=== PATIENT | female | born 1950 | race Caucasian/White ===

== ENCOUNTER 2017-04-18 14:49 | Emergency (ER) | payer OTHER ==
--- NOTE | 2017-04-18 15:13 | PDOC ---
History of Present Illness <Dallas Harley - Last Filed: 04/18/17 15:08> - General History Source: Patient Exam Limitations: No Limitations - History of Present Illness Initial Comments: 04/18/17 15:27 The patient is a 66 year old female, with a significant past medical history of Glaucoma, who presents to the emergency department s/p hand burn earlier this afternoon. The patient reports she was pouring hot water for a cup of tea, when she accidently spilled it over her right hand. Patient reports associated pain, erythema, and swelling across dorsal aspect of her right hand and in her right wrist. Patient reports developing a blister on the dorsum of her right hand. She denies any fever or chills. She denies any numbness or tingling. She denies any other trauma/ injuries. Allergies: NKDA Past Surgical History: None reported. Social History: Non smoker. No ETOH or recreational drug use. <Terry Aragon - Last Filed: 04/18/17 15:28> - General Chief Complaint: Burn Stated Complaint: RIGHT HAND BURN Time Seen by Provider: 04/18/17 14:57 Past History - Past Medical History COPD: No Other medical history: GLAUCOMA - Suicide/Smoking/Psychosocial Hx Smoking History: Never smoked Hx Alcohol Use: No Drug/Substance Use Hx: No Substance Use Type: None <Dallas Harley - Last Filed: 04/18/17 15:08> <Terry Aragon - Last Filed: 04/18/17 15:28> - Past Medical History Allergies/Adverse Reactions: Allergies Allergy/AdvReac Type Severity Reaction Status Date / Time No Known Allergies Allergy Verified 04/18/17 14:57 Home Medications: Ambulatory Orders NK [No Known Home Medication] 15 Review of Systems - Review of Systems Able to Perform ROS?: Yes Comments:: 04/18/17 15:28 CONSTITUTIONAL: No reported: Fever, Chills, Diaphoresis, Generalized Weakness, Malaise, Loss of Appetite SKIN: Present: Right hand/wrist burn, erythema and swelling. No reported: Rash, Itching, Pallor <Terry Aragon - Last Filed: 04/18/17 15:28> *Physical Exam - Vital Signs Last Vital Signs Temp Pulse Resp BP Pulse Ox 98.1 F 75 15 129/76 96 04/18/17 14:51 04/18/17 14:51 04/18/17 14:51 04/18/17 14:51 04/18/17 14:51 - Physical Exam Comments: 04/18/17 15:08 GENERAL: The patient is awake, alert, and fully oriented, Nontoxic - in no acute distress. SKIN: 2nd degree burn (1x1cm blister intact) measuring approx 3x4cm over the radial aspect of her R hand with mild erythema (1st degree burn) over medial aspect of wrist <Dallas Harley - Last Filed: 04/18/17 15:08> - Vital Signs Last Vital Signs Temp Pulse Resp BP Pulse Ox 98.1 F 75 15 129/76 96 04/18/17 14:51 04/18/17 14:51 04/18/17 14:51 04/18/17 14:51 04/18/17 14:51 <Terry Aragon - Last Filed: 04/18/17 15:28> Medical Decision Making - Medical Decision Making 04/18/17 15:10 noncircumferential burn over R wrist, 2nd degree over volar aspet with some 1st degree on radial wrist, spares palms supportive management at home aloe, avoid trauma fu with pmd in 1 week return precautiosn were dsicussed for signs of infection I discussed the physical exam findings, ancillary test results and final diagnoses with the patient. I answered all of the patient's questions. The patient was satisfied with the care received and felt comfortable with the discharge plan and treatment plan. The patient will call their primary care physician within 24 hours to arrange follow-up and will return to the Emergency Department with any new, persistent or worsening symptoms. A portion of this note was documented by scribe services under my direction. I have reviewed the details of the note, within reason, and agree with the documentation with the following case summary and management plan written by me <Dallas Harley - Last Filed: 04/18/17 15:08> *DC/Admit/Observation/Transfer - Discharge Dispostion Admit: No <Dallas Harley - Last Filed: 04/18/17 15:08> - Attestations Scribe Attestion: 04/18/17 15:28 Documentation prepared by Terry Aragon, acting as biomedical engineer for Dallas Harley MD. <Terry Aragon - Last Filed: 04/18/17 15:28> Diagnosis at time of Disposition: First degree burn of wrist Qualifiers: Encounter type: initial encounter Laterality: right Qualified Code(s): T23.171A - Burn of first degree of right wrist, initial encounter 2nd deg burn hand Qualifiers: Encounter type: initial encounter Burn of hand location: dorsum Laterality: right Qualified Code(s): T23.261A - Burn of second degree of back of right hand , initial encounter - Discharge Dispostion Disposition: HOME Condition at time of disposition: Stable - Referrals Referrals: Elaine Coy MD [Primary Care Provider] - - Patient Instructions Printed Discharge Instructions: DI for [place] Additional Instructions: Return to the emergency department immediately with ANY new, persistent or worsening symptoms. keep the blisters intact. Apply the aloe as prescribed. You MUST call and follow up with your doctor tomorrow for further evaluation of your symptoms. Results were discussed with you. Please make sure your doctor reviews the results of your emergency evaluation. Print Language: NAURUAN - Post Discharge Activity
[2017-04-18 15:20] VITALS: BP 129/76; PULSE 75; TEMP 98.1; BMI 24.9
== END 2017-04-18 15:23 | disposition home or self-care (01) ==
LOC: FER 14:49
DX: T23.171A Burn of first degree of right wrist, initial encounter (principal); T23.261A Burn of second degree of back of right hand, initial encounter; X10.0XXA Contact with hot drinks, initial encounter; Y93.89 Activity, other specified; Y92.9 Unspecified place or not applicable; H40.9 Unspecified glaucoma
CPT/HCPCS: 99281-25

== ENCOUNTER 2019-02-15 15:31 | Emergency (ER) | payer OTHER ==
--- NOTE | 2019-02-15 15:39 | PDOC ---
Rapid Medical Evaluation Time Seen by Provider: 02/15/19 15:37 Medical Evaluation: Allergies Allergy/AdvReac Type Severity Reaction Status Date / Time No Known Allergies Allergy Verified 04/18/17 14:57 02/15/19 15:37 I have performed a brief in-person evaluation of this patient. The patient presents with a chief complaint of: fell on R knee and face in street, unsure if she tripped Pertinent physical exam findings: abrasion to lips I have ordered the following: knee x-ray The patient will proceed to the ED for further evaluation. Discharge Disposition - Diagnosis Fall - Referrals - Patient Instructions - Post Discharge Activity
[2019-02-15 15:41] VITALS: BP 138/91; PULSE 83; TEMP 98.2; BMI 25.3
[2019-02-15] MEDS ORDERED: DIPHTH,PERTUSS(ACELL),TET 0.5 ML DISP.SYRIN IM ONE ×2 (16:29→16:30)
--- NOTE | 2019-02-15 16:36 | PDOC ---
History of Present Illness - General Chief Complaint: Injury Stated Complaint: FALL/INJURY Time Seen by Provider: 02/15/19 15:37 History Source: Patient Exam Limitations: No Limitations - History of Present Illness Initial Comments: 02/15/19 [address] uneven sidewalk landing on bilateral knees worse on the right, striking lip and bruising mouth and teeth. Patient denies LOC, states knees were bleeding but she is washed them and applied bacitracin ointment. Has appointment to see dentist, and states use ice and peroxide mouth rinses throughout the night which is resolved much of her swelling. Patient came for evaluation to ensure there was no further treatment required Occurred: reports: just prior to arrival Severity: reports: moderate Pain Location: reports: face, lower extremity Method of Injury: Yes: fall Loss of Consciousness: no loss of consciousness Past History - Travel Traveled outside of the country in the last 30 days: No Close contact w/someone who was outside of country & ill: No - Past Medical History Allergies/Adverse Reactions: Allergies Allergy/AdvReac Type Severity Reaction Status Date / Time No Known Allergies Allergy Verified 04/18/17 14:57 Home Medications: Ambulatory Orders NK [No Known Home Medication] 07/14/14 COPD: No Diabetes: Yes - Immunization History Immunization Up to Date: No - Psycho Social/Smoking Cessation Hx Smoking History: Never smoked Have you smoked in the past 12 months: No Information on smoking cessation initiated: No Hx Alcohol Use: No Drug/Substance Use Hx: No Substance Use Type: None Review of Systems - Review of Systems Able to Perform ROS?: Yes Is the patient limited Irish proficient: Yes Constitutional: Yes: Symptoms Reported, See HPI, Malaise. No: Fever HEENTM: Yes: Symptoms Reported, See HPI Respiratory: Yes: See HPI. No: Symptoms reported Musculoskeletal: Yes: Symptoms Reported, See HPI, Joint Pain, Joint Swelling Integumentary: Yes: Symptoms Reported, Bruising, Erythema Neurological: Yes: Symptoms reported All Other Systems: Reviewed and Negative *Physical Exam - Vital Signs Last Vital Signs Temp Pulse Resp BP Pulse Ox 98.2 F 83 83 H 138/91 98 02/15/19 15:38 02/15/19 15:38 02/15/19 15:38 02/15/19 15:38 02/15/19 15:38 - Physical Exam General Appearance: Yes: Nourished, Appropriately Dressed, Apparent Distress, Mild Distress HEENT: positive: MAI, Normal ENT Inspection, TMs Normal, Pharynx Normal, Other (With superficial abrasions to right knee both patellar and infrapatellar areas. Has no significant swelling, crepitus or step-offs. Is ambulatory without unsteadiness) Neck: positive: Supple. negative: Lymphadenopathy (R), Lymphadenopathy (L) Respiratory/Chest: positive: Lungs Clear, Normal Breath Sounds Gastrointestinal/Abdominal: positive: Soft. negative: Tender Musculoskeletal: positive: Normal Inspection Extremity: positive: Normal Capillary Refill, Normal Inspection, Normal Range of Motion Integumentary: positive: Normal Color, Other (Superficial abrasion to upper lip with some bruising, but swelling much reduced. Has no inner gingival laceration and no obvious dental loosening although patient reports upper left front) Neurologic: positive: manager operations research II-XII NML intact, Fully Oriented, Alert, Normal Mood/ Affect, Normal Response, Motor Strength / ED Progress Note - Progress Note Progress Note: 02/15/19 18:06 Multiple contusions, but no evidence of significant bony injury Discharge - Discharge Information Problems reviewed: Yes Clinical Impression/Diagnosis: Fall Qualifiers: Encounter type: initial encounter Qualified Code(s): W19.XXXA - Unspecified fall, initial encounter Condition: Stable Disposition: HOME - Admission No - Follow up/Referral Referrals: ON STAFF,NOT [Primary Care Provider] - - Patient Discharge Instructions Patient Printed Discharge Instructions: DI for Contusion Additional Instructions: Rest, ice to area on and off for 15 minutes 4-6 times a day Avoid heavy lifting or exercise until pain and swelling is resolved or until further directed Keep area highly elevated to reduce swelling Use splints/Andrew wrap as directed Followup with orthopedist in one to 2 days if not improving, if significantly improved may wait one week for followup with orthopedist May use ibuprofen every 6 hours as needed for pain Your tetanus/diphtheria/pertussis booster was updated today - Post Discharge Activity Work/Back to School Note: Back to Work
== END 2019-02-15 16:34 | disposition home or self-care (01) ==
LOC: JERFT 15:31
PROC: 3E0234Z Introduction of Serum, Toxoid and Vaccine into Muscle, Percutaneous Approach (ICD-10-PCS; principal; 2019-02-15)
DX: S80.02XA Contusion of left knee, initial encounter (principal); S80.01XA Contusion of right knee, initial encounter; S00.531A Contusion of lip, initial encounter; W18.39XA Other fall on same level, initial encounter; Y93.01 Activity, walking, marching and hiking; Y92.480 Sidewalk as the place of occurrence of the external cause; Y99.8 Other external cause status; E11.9 Type 2 diabetes mellitus without complications
CPT/HCPCS: 73562-TC-RT-FY; 90715; 99282-25

== ENCOUNTER 2019-10-17 19:16 | Emergency (ER) | payer OTHER ==
[2019-10-17 19:23] VITALS: BP 141/94; PULSE 65; TEMP 98.1; BMI 26.0
[2019-10-17] MEDS ORDERED: predniSONE 20 MG TABLET (UD) PO ONE (19:34)
[2019-10-17] MEDS ORDERED: KETOROLAC TROMETHAMINE 30 MG/1 ML VIAL IM ONE (19:34)
[2019-10-17] MEDS ORDERED: KETOROLAC TROMETHAMINE 30 MG/1 ML VIAL ONE (19:38)
[2019-10-17] MEDS ORDERED: predniSONE 20 MG TABLET (UD) ONE (19:39)
--- NOTE | 2019-10-17 20:04 | PDOC ---
Documentation entered by Eagle Lund SCRIBE, acting as scribe for Leticia Smith MD. Leticia Smith MD: This documentation has been prepared by the Ashely kendall Angel, SCRIBE, under my direction and personally reviewed by me in its entirety. I confirm that the documentation accurately reflects all work, treatment, procedures, and medical decision making performed by me. History of Present Illness - General Chief Complaint: Back Pain Stated Complaint: BACK PAIN History Source: Patient Exam Limitations: No Limitations - History of Present Illness Initial Comments: 10/17/19 19:43 Assessment and plan: This is a 69-year-old female who was lifting a heavy microwave a few days ago and after lifting the microwave she did not initially feel any pain but over the next 24 hours to 48 hours developed increasing low back pain in the sciatic area. Patient has been taking Tylenol without relief so came in for evaluation. Patient given Toradol and prednisone. Patient was made aware that the steroids well increase her sugar levels so she will need to monitor her sugars. Patient sent home with prescriptions for Flexeril a Medrol Dosepak and naproxen. Patient discharged we will follow-up with her primary care doctor. 10/17/19 19:46 The patient is a 69 year old female with a significant past medical history of diabetes who presents to the ED with lower left back pain and buttock pain for about 1 week. The patient states last week she went to [facility] with her neighbor and helped her neighbor lift a microwave into their car which was very heavy. The next day the patient noticed her back pain when she had trouble standing and sitting. The patient states she has also had trouble sleeping at night and tried tylenol and putting a patch on the area in pain with no relief. The patient denies SOB, cough or any direct trauma to her back. Past History - Medical History Allergies/Adverse Reactions: Allergies Allergy/AdvReac Type Severity Reaction Status Date / Time No Known Allergies Allergy Verified 04/18/17 14:57 Home Medications: Ambulatory Orders Cyclobenzaprine HCl [Flexeril 10 mg] 10 mg PO HS #10 tablet 10/17/19 Methylprednisolone [Medrol Dose Kj] 4 mg PO ASDIR #21 tablet 10/17/19 Naproxen [Naprosyn] 500 mg PO BID #20 tablet 10/17/19 metFORMIN HCL [Metformin HCl ER] 500 mg PO DAILY 10/17/19 COPD: No Diabetes: Yes - Immunization History Immunization Up to Date: No - Psycho-Social/Smoking History Smoking History: Never smoked Have you smoked in the past 12 months: No Review of Systems - Review of Systems Able to Perform ROS?: Yes Comments:: 10/17/19 19:47 General: No fevers or chills, no weakness, no weight loss HEENT: No change in vision. No sore throat. No ear pain CardioVascular: No chest pain or shortness of breath Respiratory:No cough, or wheezing. Gastrointestinal: no nausea, vomiting, diarrhea or constipation, No rectal bleeding Genitourinary: No dysuria, hematuria, or frequency Musculoskeletal: +Pain in the lower back/buttock Neurologic: No headache, vertigo, dizziness or loss of consciousness Psychiatric: nor depression Skin: No rashes or easy bruising normal weight change Allergic: no skin or latex allergy All other systems reviewed and normal *Physical Exam - Physical Exam 10/17/19 19:49 GENERAL: The patient is awake, alert, and fully oriented, in no acute distress. HEAD: Normal with no signs of trauma. EYES: Pupils equal, round and reactive to light, extraocular movements intact, sclera anicteric, conjunctiva clear. BACK: +Tenderness to palpation on L5 and S1. +Tenderness to palpation bilateral sciatic notch, left greater than right. EXTREMITIES: Positive straight leg test on the left leg at 90 degrees. no edema. NEUROLOGICAL: Normal speech, normal gait. PSYCH: Normal mood, normal affect. SKIN: Warm, Dry, normal turgor, no rashes or lesions noted. Discharge - Discharge Information Problems reviewed: Yes Clinical Impression/Diagnosis: Sciatica Qualifiers: Laterality: bilateral Qualified Code(s): M54.31 - Sciatica, right side; M54.32 - Sciatica, left side Condition: Stable Disposition: HOME - Admission No - Additional Discharge Information Prescriptions: Cyclobenzaprine HCl [Flexeril 10 mg] 10 mg PO HS #10 tablet Methylprednisolone [Medrol Dose Kj] 4 mg PO ASDIR #21 tablet Naproxen [Naprosyn] 500 mg PO BID #20 tablet - Follow up/Referral Referrals: Mica Bean MD [Primary Care Provider] - - Patient Discharge Instructions Additional Instructions: It is important that you monitor your blood sugar levels as you are medication well affect them. For the pain take naproxen 1 tablet twice a day with food do not take on an empty stomach At nighttime to help you sleep and relax take Flexeril 1 tablet before bed. For the inflammation also take the Medrol Dosepak as prescribed by the pack. Return to the emergency department immediately with ANY new, persistent or worsening symptoms. Continue any medications as previously prescribed by your physician. You should follow up with your primary doctor as soon as possible regarding today's emergency department visit. . Please make sure your doctor reviews the results of your emergency evaluation. Thank you for coming to the Emergency Department today for your care. It was a pleasure to see you today. Please note that your evaluation is INCOMPLETE until you follow-up with your doctor. - Post Discharge Activity
== END 2019-10-17 19:48 | disposition home or self-care (01) ==
LOC: FER 19:16
PROC: 3E023GC Introduction of Other Therapeutic Substance into Muscle, Percutaneous Approach (ICD-10-PCS; principal; 2019-10-17)
DX: M54.32 Sciatica, left side (principal)
CPT/HCPCS: 96372; 99284-25

== ENCOUNTER 2020-02-16 13:39 | Emergency (ER) | payer OTHER ==
--- OUTSIDE RECORDS SUMMARY | 2020-02-16 13:58 | XMS ---
:1950 Author Organization [facility] Support Name Relationship Address Phone RE Unavailable Unavailable Unavailable JIM JOHNSTON SON [address] [facility] [place] [address] cait Unavailable [address] [facility] [phone] [place] [address] Re-disclosure Warning The records that you are about to access may contain information from federally- assisted alcohol or drug abuse programs. If such information is present, then the following federally mandated warning applies: This information has been disclosed to you from records protected by federal confidentiality rules (42 CFR part 2). The federal rules prohibit you from making any further disclosure of this information unless further disclosure is expressly permitted by the written consent of the person to whom it pertains or as otherwise permitted by 42 CFR part 2. A general authorization for the release of medical or other information is NOT sufficient for this purpose. The Federal rules restrict any use of the information to criminally investigate or prosecute any alcohol or drug abuse patient.The records that you are about to access may contain highly sensitive health information, the redisclosure of which is protected by Article 27-F of the [facility] Public Health law. If you continue you may haveaccess to information: Regarding HIV / AIDS; Provided by facilities licensed or operated by the [facility] Office of Mental Health; or Provided by the [facility] Office for People With Developmental Disabilities. If such information is present, then the following [facility] mandated warning applies: This information has been disclosed to you from confidential records which are protected by state law. State law prohibits you from making any further disclosure of this information without the specific written consent of the person to whom it pertains, or as otherwise permitted by law. Any unauthorized further disclosure in violation of state law may result in a fine or fpc sentence or both. A general authorization for the release of medical or other information is NOT sufficient authorization for further disclosure. Insurance Providers Payer name Policy type Policy ID Covered Covered constitution party's Policy P lili / Coverage constitution party ID relationship to [employer] orm[employer] type [place] LOCAL [id number] [facility] AETNA MEBR[employer]RC SP MEBR[employer]RC MEDICARE AETNA MEBR[place]RC SP [place]RC MEDICARE AETNA MEBRTHRC SP MEBRTHRC MEDICARE AETNA MEDICARE
[2020-02-16 13:59] VITALS: BP 145/89; PULSE 70; TEMP 98.6; BMI 25.1
[2020-02-16] MEDS ORDERED: IBUPROFEN 400 MG TABLET (FP) PO ONE ×2 (14:00→14:15)
--- NOTE | 2020-02-16 14:07 | PDOC ---
History of Present Illness - General Chief Complaint: Ear Problem Stated Complaint: EAR PAIN Time Seen by Provider: 02/16/20 13:56 History Source: Patient Exam Limitations: No Limitations - History of Present Illness Initial Comments: 02/16/20 14:02 69-year-old female presents to ED with complaints of right ear pain that began while watching TV yesterday. Patient describes his blood pressure like discomfort with intermittent throbbing. Patient denies any drainage, headache or dizziness but does state mild muffled sounds. The patient denies any dental issues, throat discomfort, neck pain, fever, or injuries. Is this a multiple visit Asthma Patient?: No Timing/Duration: reports: yesterday Severity: reports: mild Possible Cause: Yes: no prior episodes Modifying Factors: improves with: other Associated Symptoms: reports: earache Past History - Travel History Traveled outside of the country in the last 30 days: No Close contact w/someone who was outside of country & ill: No - Medical History Allergies/Adverse Reactions: Allergies Allergy/AdvReac Type Severity Reaction Status Date / Time No Known Allergies Allergy Verified 02/16/20 13:57 Home Medications: Ambulatory Orders Cyclobenzaprine HCl [Flexeril 10 mg] 10 mg PO HS #10 tablet 10/17/19 Methylprednisolone [Medrol Dose Kj] 4 mg PO ASDIR #21 tablet 10/17/19 Naproxen [Naprosyn] 500 mg PO BID #20 tablet 10/17/19 metFORMIN HCL [Metformin HCl ER] 500 mg PO DAILY 10/17/19 COPD: No Diabetes: Yes - Reproductive History Is Patient Now?: No - Immunization History Immunization Up to Date: No - Psycho-Social/Smoking History Patient Lives Alone: No Lives with/in: spouse/SO Smoking History: Never smoked Have you smoked in the past 12 months: No Review of Systems - Review of Systems Able to Perform ROS?: No Is the patient limited Iraqi proficient: No Constitutional: No: Symptoms Reported HEENTM: No: Symptoms Reported Respiratory: No: Symptoms reported Cardiac (ROS): No: Symptoms Reported ABD/GI: No: Symptoms Reported : No: Symptoms Reported Musculoskeletal: No: Symptoms Reported Integumentary: No: Symptoms Reported Neurological: No: Symptoms reported Endocrine: No: Symptoms Reported Hematologic/Lymphatic: No: Symptoms Reported *Physical Exam - Vital Signs Last Vital Signs Temp Pulse Resp BP Pulse Ox 98.6 F 70 16 145/89 98 02/16/20 13:45 02/16/20 13:45 02/16/20 13:45 02/16/20 13:45 02/16/20 13:45 - Physical Exam General Appearance: Yes: Nourished, Appropriately Dressed. No: Apparent Distress HEENT: positive: EOMI, MAI, Normal Voice, Pharynx Normal, TM Erythema (Mild ), Other (No mastoid tenderness, no preauricular tenderness, no temporal tenderness). negative: Tonsillar Exudate, Nasal Congestion, Rhinorrhea, Sinus Tenderness Neck: positive: Supple. negative: Lymphadenopathy (R), Lymphadenopathy (L) Respiratory/Chest: positive: Lungs Clear, Normal Breath Sounds. negative: Respiratory Distress, Accessory Muscle Use, Labored Respiration Cardiovascular: positive: Regular Rhythm, Regular Rate. negative: Murmur Gastrointestinal/Abdominal: positive: Soft. negative: Tenderness Integumentary: positive: Normal Color, Warm, Moist Neurologic: positive: Motor Strength 5/5 (ambulatory) Medical Decision Making - Medical Decision Making 02/16/20 14:10 Patient with right ear pain. Patient on exam with mild erythema to the right TM. Discharge home on Amoxicillin Patient ordered for Motrin. Discharge - Discharge Information Problems reviewed: Yes Clinical Impression/Diagnosis: Otitis media Disposition: HOME - Follow up/Referral Referrals: Eddi Islas MD [Primary Care Provider] - - Patient Discharge Instructions Patient Printed Discharge Instructions: Middle Ear Infection Additional Instructions: Cover your ear for the next 3 days. Take motrin 400 mg for pain every 8 hours Take antibiotics as prescribed - Post Discharge Activity
== END 2020-02-16 14:32 | disposition home or self-care (01) ==
LOC: JER 13:39
DX: H66.90 Otitis media, unspecified, unspecified ear (principal)
CPT/HCPCS: 99284-25